=== PATIENT | female | born 1970 | race African-American/Black ===

== ENCOUNTER 2017-01-14 12:44 | Outpatient (CLI) | payer OTHER ==
--- NOTE | 2017-01-14 13:46 | Cat Scan Report ---
CT HEAD WITHOUT AND WITH CONTRAST INDICATION: Head weakness, left arm weakness. COMPARISON: 02/14/2013. FINDINGS: Pre-and post contrast head CT performed utilizing IV contrast demonstrates symmetric, age-appropriate ventricles and sulci without acute or recent infarct, hemorrhage, mass effect or midline shift. No abnormal extra-axial fluid collections. Stable 1 cm calcification along the interhemispheric falx. Posterior fossa structures and basilar cisterns appear within normal limits. No focal suspicious abnormal enhancement. Symmetric eye globes. Clear paranasal sinuses and mastoid air cells. Intact calvarium. Normal overlying scalp soft tissues. Numerous radiopaque dental material incidentally noted. CONCLUSION: No acute intracranial CT abnormality, as described. Thank you for the opportunity to participate in this patient's care.
== END 2017-01-14 12:45 | disposition home or self-care (01) ==
LOC: CT 12:44
PROVIDERS: ATTEND Internal Medicine
DX: M62.81 Muscle weakness (generalized) (principal); R29.810 Facial weakness
CPT/HCPCS: 70470; Q9967

== ENCOUNTER 2019-03-31 06:26 | Day surgery (SDC) | payer OTHER ==
[2019-03-31] MEDS ORDERED: NACL 0.9% 1000 ML 1,000 ML IV SCH (07:00)
[2019-03-31] MEDS ORDERED: WATER FOR IRRIG STERILE ONE (07:25)
[2019-03-31] MEDS ORDERED: WATER FOR IRRIG STERILE IR ONE (07:25)
--- NOTE | 2019-03-31 08:05 | Anesthesia Day of Surgery ---
Anesthesia Day of Surgery - Day of Surgery Patient Examined: Yes Patient H&P Reviewed: Yes Patient is NPO: Yes
--- NOTE | 2019-03-31 08:05 | Anesthesia Consultation ---
Anesthesia Consult and Med Hx Date of service: 03/31/19 - Airway Anesthetic Teeth Evaluation: Good ROM Head & Neck: Adequate Mental/Hyoid Distance: Adequate Mallampati Class: Class II Intubation Access Assessment: Good - Pulmonary Exam CTA: Yes - Cardiac Exam Cardiac Exam: RRR - Pre-Operative Health Status ASA Pre-Surgery Classification: ASA2 Proposed Anesthetic Plan: General - Gastrointestinal Hx Ulcer: Yes (STOMACH AND INTESTIONAL ULCERS)
[2019-03-31] MEDS ORDERED: DIPRIVAN 10 MG/ML IV ONE ×2 (08:43)
[2019-03-31] MEDS ORDERED: XYLOCAINE 1% 20 mL ONE (08:43)
--- NOTE | 2019-03-31 09:01 | Operative Report ---
Operative Report Operative Report: DOS: 03/31/19 SURGEON: Max Fuchs MD EGD with biopsy REPORT PREOPERATIVE DIAGNOSIS and POSTOPERATIVE DIAGNOSIS: Abd pain, melena ESTIMATED BLOOD LOSS: minimal DESCRIPTION OF PROCEDURE: A high-resolution EGD scope was passed through the oropharynx, esophagus, stomach, and third portion of duodenum. The scope was carefully withdrawn. Retroflexion was performed in the stomach. At the end of the procedure, the scope was cleaned using normal technique. Vital signs monitored continuously throughout. SEDATION: Provided by Anesthesiology Services. COMPLICATIONS: None. FINDINGS: * Normal duodenum * Moderate gastritis of the antrum and body of the stomach, Biopsies were taken to rule out H. Pylori infection. A total of 5 biopsies were taken, 2 from the antrum, 1 from the incisura, 2 from the body. * Z line irregular at 37cm from the incisors * Remainder of the exam was normal RECOMMENDATIONS: * Continue carafate and PPI, f/u path, and follow up with me in clinic in 2 weeks CC note to PCP Dr. Mahi Loredo
[2019-03-31 12:26] VITALS: BP 126/72
== END 2019-03-31 06:27 | disposition home or self-care (01) ==
LOC: GIO 06:26
PROVIDERS: ATTEND Student in an Organized Health Care Education/Training Program
DX: K31.89 Other diseases of stomach and duodenum (principal); K29.70 Gastritis, unspecified, without bleeding; Z79.899 Other long term (current) drug therapy; Z98.890 Other specified postprocedural states
CPT/HCPCS: 43239; 88305; 88342; J2704; J7030

== ENCOUNTER 2019-05-19 08:19 | Outpatient (CLI) | payer OTHER ==
[2019-05-19] MEDS ORDERED: KINEVAC IV ONE ×2 (09:00→09:29)
[2019-05-19] MEDS ORDERED: WATER FOR INJ Sterile (PF) 10 ML ONE (09:00)
[2019-05-19] MEDS ORDERED: WATER FOR INJ Sterile (PF) IV ONE (09:58)
--- NOTE | 2019-05-19 11:14 | Nuclear Medicine Report ---
NUCLEAR MEDICINE HEPATOBILIARY SCAN INDICATION: R10.13 EPIGASTRIC ABDOMINAL PAIN. TECHNIQUE: Radiotracer: Tc-99m mebrofenin (by IV): 5.3 mCi. Gallbladder Stimulant: 1.2 mcg of CCK FINDINGS: Hepatic activity: Normal. Biliary activity: Normal. Common bile duct activity at 20 minutes. Gallbladder activity: Normal at 15 minutes. Small bowel activity: Normal at 20 minutes. The gallbladder ejection fraction measures 50%. The patient reported mild nausea during CCK infusion. IMPRESSION: No biliary obstruction. Normal gallbladder ejection fraction. Symptomatology as described. Signer Name: Sher Villanueva Jr, MD Signed: 05/19/2019 11:09 AM Workstation Name: [id number]
== END 2019-05-19 08:20 | disposition home or self-care (01) ==
LOC: NM 08:19
PROVIDERS: ATTEND Student in an Organized Health Care Education/Training Program
DX: R10.13 Epigastric pain (principal)
CPT/HCPCS: 78227; A9537; J2805